=== PATIENT | female | born 1960 | race Two or more races ===

== ENCOUNTER 2018-05-02 12:37 | Emergency (ER) | payer MEDICAID ==
[~2018-05-02] VITALS: Ht 157.5 cm; Wt 104.3 kg
[2018-05-02 14:33] VITALS: BP 157/86
== END 2018-05-02 15:25 | disposition home or self-care (01) ==
LOC: ER 12:37
DX: S86.912A Strain of unspecified muscle(s) and tendon(s) at lower leg level, left leg, initial encounter (principal); W18.30XA Fall on same level, unspecified, initial encounter; Y93.89 Activity, other specified; Y99.8 Other external cause status; Y92.89 Other specified places as the place of occurrence of the external cause
CPT/HCPCS: 73502; 73560

== ENCOUNTER 2018-05-06 02:01 | Emergency (ER) | payer MEDICAID ==
[~2018-05-06] VITALS: Ht 157.5 cm; Wt 108.9 kg
[2018-05-06 02:35] LABS: Basophils # (auto) 0.1 uL; Basophils % (auto) 1.1 % (0.0-2.0); Eosinophils # (auto) 0.4 uL; Eosinophils % (auto) 3.6 % (0.0-7.0); Hematocrit 41.2 % (36.0-46.0); Hemoglobin 13.8 g/dL (12.2-16.2); Lymphocytes # (auto) 1.2 uL; Lymphocytes % (auto) 11.1 % (10.0-50.0); Mean Corpuscular Hemoglobin 31.3 pg (28.0-32.0); Mean Corpuscular Hgb Conc. 33.6 g/dL (32.0-36.0); Mean Corpuscular Volume 93.1 fL (80.0-100.0); Monocytes # (auto) 0.8 uL; Monocytes % (auto) 7.2 % (0.0-12.0); Neutrophils # (auto) 8.3 uL; Nucleated Red Blood Cells % 0.1 %; Platelet Count (auto) 264 10^3/uL (140-450); Red Blood Cells 4.42 10^6/uL (4.0-5.20); Red Cell Distribution Width 14.3 % (11.8-14.3); White Blood Cell 10.8 10^3/uL (4.4-10.8)
[2018-05-06 02:55] LABS: Albumin 3.3 g/dL (3.4-5.0); BUN/Creatinine Ratio 24.6; Bilirubin, Total 0.3 mg/dL (0.2-1.0); Calcium 8.4 mg/dL (8.5-10.1); Potassium 3.6 mmol/L (3.5-5.1); Total Protein 7.7 g/dL (6.4-8.2)
[2018-05-06] MEDS ORDERED: cloNIDine HCL 0.1 MG TAB PO ONE (03:15)
[2018-05-06] MEDS ORDERED: IBUPROFEN 800 MG TAB PO ONE (03:15)
[2018-05-06] MEDS ORDERED: cefTRIAXone W LIDOCAINE 1 GM IM IM ONE (03:15)
[2018-05-06] MEDS ORDERED: cefTRIAXone SOD 1,000 MG VL ONE (04:50)
[2018-05-06 05:05] VITALS: BP 176/109
[2018-05-06 05:14] LABS: Urine WBC None Seen /hpf (0 - 5)
[2018-05-06 05:19] LABS: Urine Bacteria NONE SEEN /hpf (None Seen); Urine Blood Negative /uL (Negative); Urine Mucus FEW (None Seen); Urine Specific Gravity 1.017 (1.001-1.035)
== END 2018-05-06 04:23 | disposition home or self-care (01) ==
LOC: ER 02:01
DX: J02.9 Acute pharyngitis, unspecified (principal); R13.10 Dysphagia, unspecified; I10 Essential (primary) hypertension; M19.90 Unspecified osteoarthritis, unspecified site
CPT/HCPCS: 36415; 71045; 80053; 81001; 85025; 96372; 99285; J0696